=== PATIENT | female | born 1955 | race Caucasian/White ===

== ENCOUNTER 2022-02-16 10:44 | Outpatient (CLI) | payer MEDICARE | END 2022-02-16 10:45 | disposition home or self-care (01) | LOC: BICMAMMO 10:44 | PROVIDERS: ATTEND Internal Medicine | DX: Z12.31 Encounter for screening mammogram for malignant neoplasm of breast (principal); Q83.9 Congenital malformation of breast, unspecified; Z80.3 Family history of malignant neoplasm of breast | CPT/HCPCS: 77063; 77067 ==

== ENCOUNTER 2022-03-03 08:58 | Outpatient (CLI) | payer MEDICARE | END 2022-03-03 08:59 | disposition home or self-care (01) | LOC: BICULT 08:58 | PROVIDERS: ATTEND Internal Medicine | DX: Q83.8 Other congenital malformations of breast (principal); N63.15 Unspecified lump in the right breast, overlapping quadrants | CPT/HCPCS: 76642; 77065; G0279 ==

== ENCOUNTER → 2022-03-08 | Day surgery (SDC) | payer MEDICARE | END | disposition home or self-care (01) | LOC: BICULT 12:30 | PROVIDERS: ATTEND Internal Medicine | PROC: 0H9T3ZX Drainage of Right Breast, Percutaneous Approach, Diagnostic (ICD-10-PCS; principal; 2022-03-08) | DX: C50.811 Malignant neoplasm of overlapping sites of right female breast (principal); Z17.0 Estrogen receptor positive status [ER+] | CPT/HCPCS: 19083; 88305; 88341; 88342; 88361 ==

== ENCOUNTER 2022-05-05 09:56 | Outpatient (CLI) | payer MEDICARE | END 2022-05-05 09:57 | disposition home or self-care (01) | LOC: BICMRI 09:56 | PROVIDERS: ATTEND Surgery | DX: C50.811 Malignant neoplasm of overlapping sites of right female breast (principal); N63.11 Unspecified lump in the right breast, upper outer quadrant | CPT/HCPCS: 82565; C8908; A9577 ==